=== PATIENT | male | born 1955 | race Caucasian/White ===

== ENCOUNTER 2018-04-02 20:50 | Emergency (ER) | payer BC ==
[~2018-04-02] VITALS: Ht 170.2 cm; Wt 90.7 kg
[~2018-04-02 20:50] MED LIST: CIPR-260 PO; HYDR-4100 PO; METF500T6 PO; METR500T PO
[2018-04-02 21:22] VITALS: BP_SYST 146
[2018-04-02] MEDS ORDERED: SULFAMETHOXAZOLE/TRIMETHOPR DS 1 TABLET PO ONE (22:30)
[2018-04-02] MEDS ORDERED: CEPHALEXIN 500 MG CAPSULE PO ONE (22:30)
[2018-04-02] MEDS ORDERED: BACITRACIN 1 GM OINT TP ONE ×2 (22:42→22:45)
[2018-04-02] MEDS ORDERED: KETOROLAC TROMETHAMINE 15 MG VIAL IM ONE (22:45)
[2018-04-02 23:14] VITALS: BP_SYST 138
== END 2018-04-02 23:14 | disposition home or self-care (01) ==
LOC: SED 20:50
DX: E11.622 Type 2 diabetes mellitus with other skin ulcer (principal); Z88.6 Allergy status to analgesic agent; Z79.899 Other long term (current) drug therapy
CPT/HCPCS: 82962; 96372; 99284; J1885

== ENCOUNTER 2018-04-13 21:10 | Inpatient (IN) | payer BC ==
[~2018-04-13] VITALS: Ht 170.2 cm; Wt 89.8 kg
[2018-04-13 21:16] VITALS: BP_SYST 163
[2018-04-13] MEDS ORDERED: cefTRIAXone 1 GM IVPB PREMIX 50 ML IV ONE (22:00)
[2018-04-13] MEDS ORDERED: NS 1000 ML IV.SOLN IV ONE (22:00)
[2018-04-13] MEDS ORDERED: MORPHINE 4 MG/ML INJ. SYRINGE IVP ONE ×2 (22:00→23:30)
[2018-04-13 22:29] LABS: BASOPHILS # (AUTO) 0.1 K/uL (0.0-0.2); BASOPHILS % (AUTO) 1.3 % (0.0-2.0); EOSINOPHILS # (AUTO) 0.7 K/uL (0.0-0.4); EOSINOPHILS % (AUTO) 7.9 % (0.0-4.0); HEMATOCRIT 47.7 % (36-54); HEMOGLOBIN 15.5 g/dL (14.0-18.0); LYMPHOCYTES # (AUTO) 3.6 K/uL (1.0-5.5); LYMPHOCYTES % (AUTO) 39.8 % (20.5-51.5); MEAN CORPUSCULAR HEMOGLOBIN 30 pg (27-31); MEAN CORPUSCULAR HGB CONC 33 % (32-36); MEAN CORPUSCULAR VOLUME 93 fL (79.0-98.0); MONOCYTES # (AUTO) 0.6 K/uL (0.0-1.0); MONOCYTES % (AUTO) 6.1 % (1.7-9.3); NEUTROPHILS # (AUTO) 4.1 K/uL (1.8-7.7); NEUTROPHILS % (AUTO) 44.9 % (40.0-70.0); PLATELET COUNT (AUTO) 267 K/uL (130-430); RED BLOOD CELL COUNT(AUTO) 5.16 MIL/uL (4.2-6.2); RED CELL DISTRIBUTION WIDTH 12.5 % (9.0-15.0); WHITE BLOOD COUNT (AUTO) 9.1 K/uL (4.8-10.8)
[2018-04-13 22:43] LABS: CREATININE 1.44 mg/dL (0.55-1.30); POTASSIUM 3.9 mmol/L (3.5-5.1)
[2018-04-13 22:49] LABS: ALBUMIN 3.6 g/dL (3.4-4.8); TOTAL BILIRUBIN 0.2 mg/dL (0.0-1.0)
[2018-04-13 22:50] LABS: PROTHROMBIN TIME 10.5 SECS (9.5-12.5)
[2018-04-13 23:27] LABS: BILIRUBIN,URINE NEGATIVE (NEGATIVE); CLARITY/URINE CLEAR (CLEAR); COLOR,URINE YELLOW (YELLOW); GLUCOSE,URINE TRACE (NEGATIVE); KETONES,URINE 1+ (NEGATIVE); LEUKOCYTE ESTERASE ,URINE NEGATIVE (NEGATIVE); NITRITE, URINE NEGATIVE (NEGATIVE); PROTEIN URINE NEGATIVE (NEGATIVE); UROBILINOGEN,URINE 0.2 (0.2-1.0)
[2018-04-13 23:29] LABS: BLOOD, URINE TRACE (NEGATIVE)
[2018-04-13 23:40] LABS: BACTERIA,URINE FEW /HPF (None Seen); WBC,URINE 0-3 /HPF (0-3)
[2018-04-14] MEDS ORDERED: ONDANSETRON HCL 4 MG/2 ML VIAL IVP PRN
[2018-04-14] MEDS ORDERED: ALBUTEROL SULFATE 0.083% 2.5 MG/3 ML VIAL.NEB INH PRN
[2018-04-14] MEDS ORDERED: LORazepam 2 MG/ML VIAL IVP PRN
[2018-04-14 00:13] VITALS: BP_SYST 141
[2018-04-14] MEDS ORDERED: DEXTROSE 50% JECT 50 ML DISP.SYRIN IVP PRN (00:15)
[2018-04-14] MEDS: HYDROcodone/ACETAMIN 5-325 MG TAB (NORCO/ VICODIN) PO PRN ×3 (00:56→16:29)
[2018-04-14] MEDS ORDERED: PIPERACILLIN/TAZOBACTAM 3.375 GM/VIAL (ZOSYN) IV ONE (01:02)
[2018-04-14] MEDS: PIPERACILLIN/TAZO 3.375/DEX-IS 50 ML IV SCH ×2 (01:10→06:29)
[2018-04-14 01:20] VITALS: BP_SYST 141
[2018-04-14] MEDS ORDERED: ZOSYN (PIPERACILLIN/TAZO) 3.375 GM in DEX-ISO (50ml) IV SCH (06:00)
[2018-04-14] MEDS: INSULIN REGULAR, HUMAN 100 UNITS/ML, 10 ML VIAL (novoLIN R) SUBCUT PRN ×4 (06:27→20:49)
[2018-04-14 06:48] LABS: BASOPHILS % (AUTO) 0.3 % (0.0-2.0); EOSINOPHILS # (AUTO) 0.4 K/uL (0.0-0.4); EOSINOPHILS % (AUTO) 5.3 % (0.0-4.0); HEMATOCRIT 38.7 % (36-54); HEMOGLOBIN 13.2 g/dL (14.0-18.0); LYMPHOCYTES # (AUTO) 2.2 K/uL (1.0-5.5); LYMPHOCYTES % (AUTO) 29.4 % (20.5-51.5); MEAN CORPUSCULAR HEMOGLOBIN 31 pg (27-31); MEAN CORPUSCULAR HGB CONC 34 % (32-36); MEAN CORPUSCULAR VOLUME 91 fL (79.0-98.0); MONOCYTES # (AUTO) 0.4 K/uL (0.0-1.0); MONOCYTES % (AUTO) 4.9 % (1.7-9.3); NEUTROPHILS # (AUTO) 4.6 K/uL (1.8-7.7); NEUTROPHILS % (AUTO) 60.1 % (40.0-70.0); PLATELET COUNT (AUTO) 200 K/uL (130-430); RED BLOOD CELL COUNT(AUTO) 4.24 MIL/uL (4.2-6.2); RED CELL DISTRIBUTION WIDTH 12.4 % (9.0-15.0); WHITE BLOOD COUNT (AUTO) 7.6 K/uL (4.8-10.8)
[2018-04-14 06:54] LABS: CALCIUM 8.2 mg/dL (8.4-11.0); CREATININE 0.94 mg/dL (0.55-1.30); POTASSIUM 3.9 mmol/L (3.5-5.1); TOTAL BILIRUBIN 0.3 mg/dL (0.0-1.0)
[2018-04-14] MEDS: ENOXAPARIN SODIUM 40 MG/0.4 ML SYRINGE SUBCUT SCH (08:05)
[2018-04-14] MEDS ORDERED: VANCOMYCIN HCL 1,500 MG in NS 250 ML IV ONE (11:00)
[2018-04-14 12:09] VITALS: BP_SYST 128
[2018-04-14] MEDS ORDERED: BALSAM PERU/CASTOR OIL 60 GM OINT...G. TP ONE (12:15)
[2018-04-14] MEDS: ceFAZolin SODIUM 1 GM in D5W 50 ML IV SCH ×2 (16:21→21:57)
[2018-04-14 16:47] VITALS: BP_SYST 117
[2018-04-14 20:00] VITALS: BP_SYST 135
[2018-04-14] MEDS ORDERED: HYDROmorphone 2 MG TAB PO ONE (21:30)
[2018-04-14] MEDS: DIPHENHYDRAMINE HCL 25 MG CAPSULE PO PRN (21:58)
[2018-04-14] MEDS: HYDROmorphone 2 MG TAB PO PRN (21:59)
[2018-04-14] MEDS: VANCOMYCIN HCL 1,250 MG in NS 250 ML IV SCH (22:49)
[2018-04-15] MEDS: DIPHENHYDRAMINE HCL 25 MG CAPSULE PO PRN ×2 (02:09→22:22)
[2018-04-15] MEDS: HYDROmorphone 2 MG TAB PO PRN ×3 (02:10→12:00)
[2018-04-15 02:30] VITALS: BP_SYST 140
[2018-04-15] MEDS: ceFAZolin SODIUM 1 GM in D5W 50 ML IV SCH ×3 (06:22→22:23)
[2018-04-15] MEDS: INSULIN REGULAR, HUMAN 100 UNITS/ML, 10 ML VIAL (novoLIN R) SUBCUT PRN ×4 (06:28→22:18)
[2018-04-15 06:56] LABS: BASOPHILS % (AUTO) 0.7 % (0.0-2.0); EOSINOPHILS # (AUTO) 0.5 K/uL (0.0-0.4); EOSINOPHILS % (AUTO) 8.1 % (0.0-4.0); HEMATOCRIT 40.5 % (36-54); HEMOGLOBIN 13.3 g/dL (14.0-18.0); LYMPHOCYTES # (AUTO) 2.8 K/uL (1.0-5.5); LYMPHOCYTES % (AUTO) 41.5 % (20.5-51.5); MEAN CORPUSCULAR HEMOGLOBIN 30 pg (27-31); MEAN CORPUSCULAR HGB CONC 33 % (32-36); MEAN CORPUSCULAR VOLUME 92 fL (79.0-98.0); MONOCYTES # (AUTO) 0.5 K/uL (0.0-1.0); PLATELET COUNT (AUTO) 197 K/uL (130-430); RED BLOOD CELL COUNT(AUTO) 4.39 MIL/uL (4.2-6.2); RED CELL DISTRIBUTION WIDTH 12.2 % (9.0-15.0); WHITE BLOOD COUNT (AUTO) 6.8 K/uL (4.8-10.8)
[2018-04-15 07:26] LABS: CALCIUM 8.7 mg/dL (8.4-11.0); CREATININE 0.83 mg/dL (0.55-1.30); POTASSIUM 4.3 mmol/L (3.5-5.1); TOTAL BILIRUBIN 0.3 mg/dL (0.0-1.0)
[2018-04-15 07:30] VITALS: BP_SYST 146
[2018-04-15] MEDS: ENOXAPARIN SODIUM 40 MG/0.4 ML SYRINGE SUBCUT SCH (08:13)
[2018-04-15] MEDS ORDERED: GLU500 PO (09:59)
[2018-04-15 10:39] LABS: NEUTROPHILS % (AUTO) 42.7 % (40.0-70.0)
[2018-04-15] MEDS: metFORMIN HCL 500 MG TABLET PO SCH ×2 (11:46→16:51)
[2018-04-15] MEDS: VANCOMYCIN HCL 1,250 MG in NS 250 ML IV SCH ×2 (11:53→23:34)
[2018-04-15 12:02] VITALS: BP_SYST 133
[2018-04-15] MEDS: BALSAM PERU/CASTOR OIL 60 GM OINT...G. TP SCH (14:47)
[2018-04-15 16:02] VITALS: BP_SYST 134
[2018-04-15] MEDS: HYDROcodone/ACETAMIN 5-325 MG TAB (NORCO/ VICODIN) PO PRN ×2 (16:51→22:41)
[2018-04-15 20:00] VITALS: BP_SYST 135
[2018-04-16 00:35] VITALS: BP_SYST 124
[2018-04-16 06:39] LABS: CALCIUM 8.5 mg/dL (8.4-11.0); CREATININE 0.98 mg/dL (0.55-1.30); POTASSIUM 3.8 mmol/L (3.5-5.1)
[2018-04-16 06:49] LABS: TOTAL BILIRUBIN 0.2 mg/dL (0.0-1.0)
[2018-04-16] MEDS: ceFAZolin SODIUM 1 GM in D5W 50 ML IV SCH (06:49)
[2018-04-16] MEDS: metFORMIN HCL 500 MG TABLET PO SCH ×2 (06:50→11:21)
[2018-04-16] MEDS: INSULIN REGULAR, HUMAN 100 UNITS/ML, 10 ML VIAL (novoLIN R) SUBCUT PRN ×2 (07:12→11:18)
[2018-04-16 07:26] LABS: BASOPHILS % (AUTO) 0.5 % (0.0-2.0); EOSINOPHILS # (AUTO) 0.6 K/uL (0.0-0.4); EOSINOPHILS % (AUTO) 8.4 % (0.0-4.0); HEMATOCRIT 39.6 % (36-54); HEMOGLOBIN 13.1 g/dL (14.0-18.0); LYMPHOCYTES % (AUTO) 45.2 % (20.5-51.5); MEAN CORPUSCULAR HEMOGLOBIN 31 pg (27-31); MEAN CORPUSCULAR HGB CONC 33 % (32-36); MEAN CORPUSCULAR VOLUME 92 fL (79.0-98.0); MONOCYTES # (AUTO) 0.5 K/uL (0.0-1.0); MONOCYTES % (AUTO) 7.5 % (1.7-9.3); NEUTROPHILS # (AUTO) 2.6 K/uL (1.8-7.7); NEUTROPHILS % (AUTO) 38.4 % (40.0-70.0); PLATELET COUNT (AUTO) 192 K/uL (130-430); RED BLOOD CELL COUNT(AUTO) 4.29 MIL/uL (4.2-6.2); RED CELL DISTRIBUTION WIDTH 12.5 % (9.0-15.0); WHITE BLOOD COUNT (AUTO) 6.7 K/uL (4.8-10.8)
[2018-04-16 07:30] VITALS: BP_SYST 144
[2018-04-16] MEDS: ENOXAPARIN SODIUM 40 MG/0.4 ML SYRINGE SUBCUT SCH (09:24)
[2018-04-16] MEDS ORDERED: VANCOMYCIN HCL 1,500 MG in NS 250 ML IV SCH (10:00)
[2018-04-16 10:49] VITALS: BP_SYST 144
[2018-04-16 10:56] VITALS: BP_SYST 133
[2018-04-16] MEDS: BALSAM PERU/CASTOR OIL 60 GM OINT...G. TP SCH (11:20)
[2018-04-16] MEDS ORDERED: GLIM1TAB PO (11:34)
[2018-04-16] MEDS ORDERED: LINA5TAB2 PO (11:34)
[2018-04-16] MEDS ORDERED: CLIN300C11 PO (11:35)
[2018-04-16] MEDS ORDERED: LACT1CAP72 PO (11:35)
[2018-04-16] MEDS ORDERED: MUPI1OIN4 (11:37)
[2018-04-17] MEDS ORDERED: GLIMEPIRIDE 2 MG TABLET PO SCH (07:00)
== END 2018-04-16 11:55 | disposition home or self-care (01) | DRG 638 ==
LOC: SED 21:10 → SMU 23:33
PROVIDERS: ADMIT Internal Medicine; ATTEND Internal Medicine
DX: E11.622 Type 2 diabetes mellitus with other skin ulcer (principal); L97.819 Non-pressure chronic ulcer of other part of right lower leg with unspecified severity; L03.115 Cellulitis of right lower limb; E11.65 Type 2 diabetes mellitus with hyperglycemia; Z83.3 Family history of diabetes mellitus; Z90.49 Acquired absence of other specified parts of digestive tract
CPT/HCPCS: 36415; 71045; 73720; 80053; 80202-TC; 81000-TC; 82962; 83036; 83605; 83880; 84484; 85025; 85610-TC; 85730-TC; 87040-TC; 87081; 87086; 93005; 96365; 96375; 96376; 99285; J0690; J0696; J1650; J1815; J2060; J2270; J2405; J2543; J3370; J7030; J7050; J7060; Q0163

== ENCOUNTER 2022-07-26 19:51 | Emergency (ER) | payer BC ==
[~2022-07-26] VITALS: Ht 167.6 cm; Wt 82.6 kg
[~2022-07-26 19:51] MED LIST changes: -CIPR-260 PO; +CLIN-142 PO; +GLIM1TAB PO; +GLU500 PO; -HYDR-4100 PO; +LACT1CAP72 PO; +LINA5TAB2 PO; -METF500T6 PO; -METR500T PO; +MUPI1OIN4
[2022-07-26 19:58] VITALS: BP_SYST 151
--- NOTE | 2022-07-26 20:03 | NUR ---
Patient triaged and placed in waiting room. VSS and patient appears in no acute distress at this time. Accompanied by , awaiting available bed, and MD notified of need for MSE.
[2022-07-26] MEDS ORDERED: KETOROLAC TROMETHAMINE 30 MG VIAL IVP ONE (21:45)
[2022-07-26] MEDS ORDERED: ONDANSETRON HCL 4 MG/2 ML VIAL IVP ONE (21:45)
[2022-07-26] MEDS ORDERED: NACL 0.9% 1,000 ML IV ONE (21:45)
[2022-07-26 22:07] LABS: BASOPHILS # (AUTO) 0.1 K/uL (0.0-0.2); BASOPHILS % (AUTO) 0.7 % (0.0-2.0); EOSINOPHILS # (AUTO) 0.1 K/uL (0.0-0.4); EOSINOPHILS % (AUTO) 0.7 % (0.0-4.0); HEMATOCRIT 47.7 % (36-54); HEMOGLOBIN 16.1 g/dL (14.0-18.0); LYMPHOCYTES # (AUTO) 2.8 K/uL (1.0-5.5); LYMPHOCYTES % (AUTO) 20.8 % (20.5-51.5); MEAN CORPUSCULAR HEMOGLOBIN 30 pg (27-31); MEAN CORPUSCULAR HGB CONC 34 % (32-36); MEAN CORPUSCULAR VOLUME 90 fL (79.0-98.0); MONOCYTES # (AUTO) 0.6 K/uL (0.0-1.0); MONOCYTES % (AUTO) 4.4 % (1.7-9.3); NEUTROPHILS % (AUTO) 73.4 % (40.0-70.0); PLATELET COUNT (AUTO) 237 K/uL (130-430); RED CELL DISTRIBUTION WIDTH 13.8 % (9.0-15.0); WHITE BLOOD COUNT (AUTO) 13.6 K/uL (4.8-10.8)
[2022-07-26 22:22] LABS: ALBUMIN 4.3 g/dL (3.4-4.8); CALCIUM 9.6 mg/dL (8.4-11.0); CREATININE 1.49 mg/dL (0.55-1.30); TOTAL BILIRUBIN 0.3 mg/dL (0.0-1.0)
--- NOTE | 2022-07-26 23:42 | NUR ---
Patient placed in ER CHAIR 1 for evaluation. Instructed patient to notify ED staff for any changes in condition or worsening of symptoms. Patient verbalized understanding.
--- NOTE | 2022-07-26 23:45 | NUR ---
Dr. Winslow is at bedside examining the patient.
[2022-07-26] MEDS ORDERED: DICY10CA13 PO (23:55)
[2022-07-27 00:38] LABS: BILIRUBIN,URINE NEGATIVE (NEGATIVE); BLOOD, URINE 3+ (NEGATIVE); COLOR,URINE YELLOW (YELLOW); GLUCOSE,URINE 3+ (NEGATIVE); KETONES,URINE 2+ (NEGATIVE); LEUKOCYTE ESTERASE ,URINE NEGATIVE (NEGATIVE); NITRITE, URINE NEGATIVE (NEGATIVE); PH,URINE 5.5 (5.0-8.0); PROTEIN URINE NEGATIVE (NEGATIVE); UROBILINOGEN,URINE 0.2 (0.2-1.0)
[2022-07-27 00:40] VITALS: BP_SYST 122
--- NOTE | 2022-07-27 00:41 | NUR ---
Patient given written and verbal discharge instructions and verbalizes understanding. ER MD discussed with patient the results and treatment provided. Patient in stable condition. ID arm band removed. Rx of DICYCLOMINE HCL given. Patient educated on pain management and to follow up with PMD. Pain Scale 0/10. Opportunity for questions provided and answered. Medication side effect fact sheet provided.
[2022-07-27 00:56] LABS: CLARITY/URINE SLIGHTLY CLOUDY (CLEAR)
[2022-07-27 00:57] LABS: RBC,URINE 20-50 /HPF (0-3)
[2022-07-27 00:58] LABS: BACTERIA,URINE None Seen /HPF (None Seen); WBC,URINE 0-3 /HPF (0-3)
== END 2022-07-27 00:40 | disposition home or self-care (01) ==
LOC: SED 19:51
DX: R10.32 Left lower quadrant pain (principal); E11.65 Type 2 diabetes mellitus with hyperglycemia; R73.9 Hyperglycemia, unspecified; Z88.6 Allergy status to analgesic agent; Z79.899 Other long term (current) drug therapy
CPT/HCPCS: 99285; 74176; 96374; 96375; 80053; 81000; 82962; 85025; 36415; 76376; J1885; J2405

== ENCOUNTER 2023-06-26 10:04 | Emergency (ER) | payer BC, OTHER ==
[~2023-06-26] VITALS: Ht 167.6 cm; Wt 83.9 kg
[~2023-06-26 10:04] MED LIST changes: +CYCL10TA24 PO; +DICY-14 PO; +IBUP-1969 PO; +LIDO1ADH77 TD; +METF1000 PO
[2023-06-26 10:35] VITALS: BP_SYST 160; PULSE 90; RESP 19; TEMP 97.8; O2SAT 98
[2023-06-26] MEDS: HYDROcodone/ACETAMIN 5-325 MG TAB (NORCO/ VICODIN) PO ONE (12:04)
[2023-06-26] MEDS ORDERED: HYDR-3917 PO (12:50)
[2023-06-26 13:02] VITALS: BP_SYST 160; PULSE 90; RESP 19; TEMP 97.8; O2SAT 98
== END 2023-06-26 13:02 | disposition home or self-care (01) ==
LOC: SED 10:04
DX: S40.012A Contusion of left shoulder, initial encounter (principal); E11.9 Type 2 diabetes mellitus without complications; I10 Essential (primary) hypertension; Z88.5 Allergy status to narcotic agent; W01.0XXA Fall on same level from slipping, tripping and stumbling without subsequent striking against object, initial encounter; Y93.89 Activity, other specified; Y92.22 Religious institution as the place of occurrence of the external cause; Y99.8 Other external cause status
CPT/HCPCS: 73030; 73564; 99284